=== PATIENT | male | born 1985 | race African-American/Black ===

== ENCOUNTER 2019-12-07 21:51 | Inpatient (IN) | payer SELFPAY ==
--- NOTE | 2019-12-07 22:00 | ER Document Report ---
ED Medical Screen (RME) - General Chief Complaint: Slurred Speech Stated Complaint: SLURRED SPEECH,BLOOD PRESSURE ISSUES Time Seen by Provider: 12/07/19 21:54 Primary Care Provider: MARY VELARDE [Primary Care Provider] - Follow up as needed Mode of Arrival: Ambulatory Information source: Patient Notes: 34-year-old male presents emergency department with high blood pressure. Reports last Monday patient called EMS because he felt shortness of breath and his blood pressure was very high. He followed up on Monday with urgent care. They did put him on clonidine and another blood pressure medication. He reports they followed up on Monday where lab work was done. Tonight when he was at [employer] he started having slurred speech and the right side of his face started drooping. Slight droop noted to the right side lip. Unable to appreciate slurred speech at this time. He reports he was dizzy at the time. Denies history of cardiac disease diabetes. I have greeted and performed a rapid initial assessment of this patient. A comprehensive ED assessment and evaluation of the patient, analysis of test results and completion of the medical decision making process will be conducted by additional ED providers. - Related Data Allergies/Adverse Reactions: No Known Allergies Allergy (Unverified 12/11/11 16:42) Past Medical History - Immunizations Hx Diphtheria, Pertussis, Tetanus Vaccination: Yes Doctor's Discharge - Discharge Referrals: MARY VELARDE [Primary Care Provider] - Follow up as needed
[2019-12-07] MEDS ORDERED: LABETALOL HCL INJ 20 MG/4 ML DISP.SYRIN IV ONE (22:17)
[2019-12-07 22:18] LABS: ABSOLUTE BASOPHILS # (AUTO) 0.2 10^3/uL (0.0-0.2); ABSOLUTE EOSINOPHILS # (AUTO) 0.4 10^3/uL (0.0-0.6); ABSOLUTE LYMPHOCYTES (AUTO) 3.2 10^3/uL (0.5-4.7); ABSOLUTE MONOCYTES (AUTO) 0.6 10^3/uL (0.1-1.4); ABSOLUTE NEUT (AUTO) 9.4 10^3/uL (1.7-8.2); BASOPHILS % (AUTO) 1.2 % (0-2); EOSINOPHILS % (AUTO) 2.9 % (0-6); HEMATOCRIT 44.6 % (37.9-51.0); LYMPHOCYTES % (AUTO) 23.1 % (13-45); MEAN CORPUSCULAR HEMOGLOBIN 31.3 pg (27.0-33.4); MEAN CORPUSCULAR HGB CONC 33.6 g/dL (32.0-36.0); MEAN CORPUSCULAR VOLUME 93 fl (80-97); MONOCYTES % (AUTO) 4.3 % (3-13); PLATELET COUNT 315 10^3/uL (150-450); RED BLOOD COUNT 4.78 10^6/uL (4.35-5.55); RED CELL DISTRIBUTION WIDTH 15.5 % (11.5-14.0); SEGMENTED NEUTROPHILS % (AUTO) 68.5 % (42-78); TOTAL CELLS COUNTED % (AUTO) 100 %; WHITE BLOOD COUNT 13.7 10^3/uL (4.0-10.5)
[2019-12-07 22:29] LABS: INTERNATIONAL RATION (INR) 1.22
[2019-12-07 22:30] LABS: PARTIAL THROMBOPLASTIN TIME 31.5 SEC (23.5-35.8)
[2019-12-07 22:32] LABS: PROTHROMBIN TIME 15.5 SEC (11.4-15.4)
--- NOTE | 2019-12-07 22:43 | RADIOLOGY REPORT (SQ) ---
EXAM DESCRIPTION: XR CHEST 1 VIEW COMPLETED DATE/TME: 12/07/2019 21:57 CLINICAL HISTORY: 34 years, Male, slurred speech, right side facial droop COMPARISON: None. NUMBER OF VIEWS: 1 TECHNIQUE: Portable chest LIMITATIONS: None. FINDINGS: Heart size at the upper limits of normal. Lungs are clear. No pneumothorax IMPRESSION: No acute cardiopulmonary process copyright 2010 [employer]- All Rights Reserved
[2019-12-07 22:44] LABS: ALBUMIN 4.1 g/dL (3.5-5.0); ALKALINE PHOSPHATASE 65 U/L (38-126); ANION GAP 10 (5-19); ASPARTATE AMINO TRANSFERASE 31 U/L (17-59); BILIRUBIN,DIRECT 0.5 mg/dL (0.0-0.4); BLOOD UREA NITROGEN 19 mg/dL (7-20); CALCIUM 9.5 mg/dL (8.4-10.2); CARBON DIOXIDE 26 mmol/L (22-30); CHLORIDE 102 mmol/L (98-107); CREATINE KINASE 65 U/L (55-170); GLUCOSE 120 mg/dL (75-110); POTASSIUM 4.1 mmol/L (3.6-5.0); TOTAL PROTEIN 7.5 g/dL (6.3-8.2)
--- NOTE | 2019-12-07 22:49 | RADIOLOGY REPORT (SQ) ---
EXAM DESCRIPTION: CT HEAD WITHOUT IV CONTRAST COMPLETED DATE/TME: 12/07/2019 21:57 CLINICAL HISTORY: 34 years Male slurred speech, right side facial droop COMPARISON: None. TECHNIQUE: Contiguous axial CT images obtained through the brain without IV contrast. This exam was performed according to our department optimization program which includes automated exposure control, adjustment of the mA and/or kv according to patient size and/or use of iterative reconstruction technique. FINDINGS: The ventricles and sulci are within normal limits for the patient's age. No midline shift or mass effect. No masses identified. No acute intracranial hemorrhage. Low-attenuation along the region of the boykin radiata bilaterally which appears to be secondary to artifact on the coronal images. No fluid or significant mucosal thickening in the visualized paranasal sinuses. No depressed calvarial fractures. IMPRESSION: No acute intracranial abnormality is identified. Nurse practitioner Prudence Koch was called and notified of the findings at 9:40 PM central time.
[2019-12-07 22:56] LABS: CREATINE KINASE MB 1.38 ng/mL (<4.55); TROPONIN I 0.026 ng/mL
[2019-12-08] MEDS ORDERED: LABETALOL HCL INJ 20 MG/4 ML DISP.SYRIN IV ONE (00:06)
--- NOTE | 2019-12-08 00:17 | ER Document Report ---
Entered by DANK MEDEIROS SCRIBE 12/07/191 Acting as scribe for:VIKKI DOMINGUEZ IV, MD ED General - General Chief Complaint: Slurred Speech Stated Complaint: SLURRED SPEECH,BLOOD PRESSURE ISSUES Time Seen by Provider: 12/07/19 21:54 Mode of Arrival: Ambulatory Information source: Patient Notes: This 34 year old male patient with a history of hypertension presents to the ED today with complaints of stroke-like symptoms that began x15-20 minutes prior to arrival. Patient reports slurred speech and right-sided facial drooping while he was at [facility]. Patient also reports dizziness at that time. Patient states that he called EMS with complaints of shortness of breath and a high blood pressure reading x8 days ago. Patient states that the next day, he followed up at a local urgent care and was prescribed clonidine and another blood pressure medication. Patient notes that he followed up with the urgent care x3 days ago and had some lab work done. - Related Data Allergies/Adverse Reactions: No Known Allergies Allergy (Unverified 12/08/19 09:26) Home Medications: Clonidine. Lisinopril-Hctz Past Medical History - General Information source: Patient - Social History Smoking Status: Never Smoker Cigarette use (# per day): No Chew tobacco use (# tins/day): No Smoking Education Provided: No Drug Abuse: None Lives with: Spouse/Significant other Family History: Reviewed & Not Pertinent Patient has suicidal ideation: No Patient has homicidal ideation: No - Immunizations Hx Diphtheria, Pertussis, Tetanus Vaccination: Yes Review of Systems - Review of Systems Constitutional: No symptoms reported EENT: No symptoms reported Cardiovascular: See HPI, Dizziness Gastrointestinal: No symptoms reported Genitourinary: No symptoms reported Male Genitourinary: No symptoms reported Musculoskeletal: No symptoms reported Skin: No symptoms reported Hematologic/Lymphatic: No symptoms reported Neurological/Psychological: See HPI, Speech impairment - Slurred speech, Other - Right-sided facial droop -: Yes All other systems reviewed and negative Physical Exam - Vital signs Vitals: Resp BP Pulse Ox 16 191/158 H 96 12/07/19 22:11 12/07/19 22:11 12/07/19 22:11 Interpretation: Hypertensive - General General appearance: Alert - HEENT Head: Normocephalic, Atraumatic Eyes: Normal Pupils: PERRL - Respiratory Respiratory status: No respiratory distress Chest status: Nontender Breath sounds: Normal Chest palpation: Normal - Cardiovascular Rhythm: Tachycardia Heart sounds: Normal auscultation Murmur: No - Abdominal Inspection: Normal Distension: No distension Bowel sounds: Normal Tenderness: Nontender Organomegaly: No organomegaly - Back Back: Normal, Nontender - Extremities General upper extremity: Normal inspection General lower extremity: Normal inspection - Neurological Neuro grossly intact: Yes - Psychological Associated symptoms: Normal affect, Normal mood - Skin Skin Temperature: Warm Skin Moisture: Dry Skin Color: Normal Course - Vital Signs Vital signs: Temp Pulse Resp BP Pulse Ox 97.7 F 90 24 H 138/105 H 100 12/09/19 00:02 12/09/19 00:02 12/09/19 00:02 12/09/19 00:00 12/09/19 00:02 - Laboratory Result Diagrams: 12/07/19 22:08 12/07/19 22:08 Laboratory results interpreted by me: 12/07/19 12/07/19 12/07/19 22:08 22:08 22:08 WBC 13.7 H RDW 15.5 H Absolute Neuts (auto) 9.4 H PT 15.5 H Creatinine 1.60 H Est GFR (MDRD) Non-Af 50 L Glucose 120 H POC Glucose Total Bilirubin 2.0 H Direct Bilirubin 0.5 H 12/07/19 22:17 WBC RDW Absolute Neuts (auto) PT Creatinine Est GFR (MDRD) Non-Af Glucose POC Glucose 129 H Total Bilirubin Direct Bilirubin - EKG Interpretation by Me Additional EKG results interpreted by me: 12/08/19 01:01 EKG performed on 12/07/2019 at 2222 hrs. was interpreted by this MD. Findings: Sinus tachycardia, rate 112, normal axis, P waves proceed QRS complexes, ST segments are nonspecific. - Consults dr. sun Time consulted: 00:50 Reason for consultation: 12/08/19 00:57 tia, hypertensive urgency Consulted provider: will come to ER Critical Care Note - Critical Care Note Total time excluding time spent on procedures (mins): 30 Discharge - Discharge Clinical Impression: TIA (transient ischemic attack), Hypertensive urgency Condition: Good Disposition: ADMITTED INPATIENT Admitting Provider: Sky (Hospitalist) Unit Admitted: [facility] I personally performed the services described in the documentation, reviewed and edited the documentation which was dictated to the scribe in my presence, and it accurately records my words and actions.
[2019-12-08] MEDS ORDERED: ENALAPRILAT DIHYDRATE INJ/PF 2.5 MG/2 ML SDV IV ONE (00:54)
[2019-12-08] MEDS ORDERED: ACETAMINOPHEN 325 MG TABLET PO PRN (01:06)
[2019-12-08] MEDS ORDERED: HYDRALAZINE HCL INJ/PF 20 MG/1 ML SDV IV PRN (01:17)
[2019-12-08] MEDS ORDERED: METOPROLOL TARTRATE PF/INJ 5 MG/5 ML SDV IV PRN (01:19)
--- NOTE | 2019-12-08 01:42 | PDOC H&P ---
History of Present Illness Patient complains of: Right facial numbness with slurred speech History of Present Illness: PRINCE MEREDITH is a 34 year old male with a body mass index of 57. He just established with a primary care provider at [facility]. At the initial visit on Monday of this week his blood pressure was 220/160. He was placed on lisinopril with hydrochlorothiazide 20/12.5. He felt fine today and was in his usual state of health when he developed right-sided facial numbness and slurred speech while driving. They immediately pulled over. He had chicken for dinner and it happened subsequently after this. The patient and his feel that it may have been the sodium in the meal. By the time he reached the emergency department his symptoms were completely resolved. His blood pressure at the time of this encounter is 175/108. His pulse was 92. He felt comfortable. He had no complaints of headache, chest pain, palpitations, nausea or vomiting and was not diaphoretic. Other than the high blood pressure he has no other past medical history. His reports that he does snore and may very well have obstructive sleep apnea. He does have a history of tobacco use but stopped approximately 1 year ago. 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 His creatinine was 1.6 on admission. Blood work was drawn at his primary care appointment on Monday however he is not aware of the results. He denies any knowledge of previous kidney problems and there is no family history of kidney disease. The patient was referred to the hospitalist service for admission. Past Medical History Cardiac Medical History: Reports: Hypertension Pulmonary Medical History: Denies: Asthma, Chronic Obstructive Pulmonary Disease (COPD), Respiratory Failure Neurological Medical History: Denies: Hemorrhagic CVA, Ischemic CVA Endocrine Medical History: Reports: Obesity Renal/ Medical History: Denies: Chronic Kidney Disease Malignancy Medical History: Reports: None GI Medical History: Reports: None Musculoskeltal Medical History: Reports: None Skin Medical History: Denies: Eczema, Psoriasis Psychiatric Medical History: Reports: Tobacco Dependency Denies: Alcohol Dependency, Depression, Substance Abuse Traumatic Medical History: Reports: None Hematology: Reports: None Infectious Medical History: Reports: None Past Surgical History Past Surgical History: Reports: None Social History Information Source: Patient - And his spouse who is at the bedside Lives with: Family Smoking Status: Former Smoker Electronic Cigarette use?: No Last Time Smoked: Approximately 1 year ago Frequency of Alcohol Use: None Hx Recreational Drug Use: No Hx Prescription Drug Abuse: No Past Social History Note: 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[place] [employer] - Advance Directive Resuscitation Status: Full Code Surrogate healthcare decision maker:: His would be the dedicated decision maker Family History Family History: Hypertension Parental Family History Reviewed: Yes Children Family History Reviewed: Yes Sibling(s) Family History Reviewed.: Yes Medication/Allergy Home Medications: No Home Medications 12/11/11 Allergies/Adverse Reactions: No Known Allergies Allergy (Unverified 12/11/11 16:42) Review of Systems All systems: reviewed and no additional remarkable complaints except as stated Cardiovascular: PRESENT: edema - Bilateral lower extremities Respiratory: PRESENT: other - Patient snores Physical Exam Vital Signs: Temp Pulse Resp BP Pulse Ox 98.2 F 86 13 175/108 H 98 12/07/19 22:21 12/08/19 00:00 12/08/19 00:30 12/08/19 00:31 12/08/19 00:31 Intake & Output 12/06/19 12/07/19 12/08/19 06:59 06:59 06:59 Weight 185.4 kg General appearance: PRESENT: no acute distress, cooperative, morbidly obese, well-developed, well-nourished Head exam: PRESENT: atraumatic, normocephalic Eye exam: PRESENT: conjunctiva pale, EOMI, PERRLA. ABSENT: scleral icterus Ear exam: PRESENT: normal external ear exam. ABSENT: bleeding, drainage Mouth exam: PRESENT: moist, tongue midline Teeth exam: ABSENT: poor dentation Neck exam: PRESENT: other - Very large neck. ABSENT: carotid bruit, JVD, lymphadenopathy Respiratory exam: PRESENT: clear to auscultation tank, symmetrical, unlabored. ABSENT: accessory muscle use, prolonged expiratory phas, rales, rhonchi, tachypnea, wheezes Cardiovascular exam: PRESENT: RRR, +S1, +S2. ABSENT: diastolic murmur, systolic murmur Pulses: PRESENT: normal radial pulses GI/Abdominal exam: PRESENT: normal bowel sounds, soft, other - Protuberant abdomen. ABSENT: distended, guarding, tenderness Rectal exam: PRESENT: deferred Gentrourinary exam: ABSENT: indwelling catheter Extremities exam: PRESENT: full ROM, +1 edema Musculoskeletal exam: PRESENT: ambulatory, normal inspection. ABSENT: deformity Neurological exam: PRESENT: alert, awake, oriented to person, oriented to place, oriented to time, oriented to situation, CN II-XII grossly intact, normal gait. ABSENT: motor sensory deficit Psychiatric exam: PRESENT: appropriate affect, normal mood. ABSENT: agitated, anxious Focused psych exam: ABSENT: delusional, restlessness Skin exam: PRESENT: dry, normal color, warm. ABSENT: cyanosis, rash Results Laboratory Results: 12/07/19 22:08 12/07/19 22:08 12/07/19 12/07/19 22:08 22:08 WBC 13.7 H RBC 4.78 Hgb 15.0 Hct 44.6 MCV 93 MCH 31.3 MCHC 33.6 RDW 15.5 H Plt Count 315 Seg Neutrophils % 68.5 Sodium 138.2 Potassium 4.1 Chloride 102 Carbon Dioxide 26 Anion Gap 10 BUN 19 Creatinine 1.60 H Est GFR ( Amer) > 60 Glucose 120 H Calcium 9.5 Total Bilirubin 2.0 H AST 31 Alkaline Phosphatase 65 Total Protein 7.5 Albumin 4.1 12/07/19 12/07/19 22:08 22:08 Creatine Kinase 65 CK-MB (CK-2) 1.38 Troponin I 0.026 Impressions: Chest X-Ray 12/07/19 21:57 IMPRESSION: No acute cardiopulmonary process copyright 2011 [employer]- All Rights Reserved Head CT 12/07/19 21:57 IMPRESSION: No acute intracranial abnormality is identified. Nurse practitioner Prudence Koch was called and notified of the findings at 9:40 PM central time. Assessment and Plan - Diagnosis (1) TIA (transient ischemic attack) Is this a current diagnosis for this admission?: Yes Plan: Patient symptoms resolved prior to presentation in the emergency department. He has never had a previous episode. I believe it is related to his hypertensive urgency/uncontrolled hypertension. Please see medications below. (2) Hypertensive urgency Is this a current diagnosis for this admission?: Yes Plan: Multiple medications will be given. In addition to the medications provided by the emergency department I have ordered 40 mg of furosemide IV as well as 5 mg of enalapril. I have started scheduled hydralazine as well as intravenous hydralazine as needed. He has metoprolol ordered as needed also. If this regimen is not effective I may add nifedipine orally. Because of his morbid obesity I am going to use a thigh cuff on his arm to ensure that we have an appropriately sized cuff for accurate blood pressure measurement. (3) Acute kidney injury Is this a current diagnosis for this admission?: Yes Plan: Patient has no history of kidney disease. There is a family history of hy pertension but he denies family history of kidney issues. His serum creatinine was elevated on admission at 1.60. He is on lisinopril. We will monitor his pressure on the AALIYAH inhibitor/angiotensin receptor madeline and continue to monitor. (4) Localized edema Is this a current diagnosis for this admission?: Yes Plan: The patient has lower extremity edema. He states that it is worse today than it was on Monday. He may need furosemide instead of hydrochlorothiazide. (5) Morbid obesity with BMI of 50.0-59.9, adult Is this a current diagnosis for this admission?: Yes Plan: He did start a diet after visiting with the primary care. Obviously is too soon to tell. He will be placed on a cardiac diet at this point. His glucose was 120 and if it continues to be elevated will check a hemoglobin A1c as well. (6) Hyperbilirubinemia Is this a current diagnosis for this admission?: Yes Plan: We have no old blood work to compare to. It is unknown if this is new or not. We will continue to monitor. (7) Obstructive sleep apnea Is this a current diagnosis for this admission?: Yes Plan: The patient's reports that he snores. At the primary care visit on Monday they discussed obstructive sleep apnea. At the follow-up they are going to review the need for a sleep study. I explained to the patient that t his absolutely should be obtained. He has significant risk with his morbid obesity. We will keep him on a pulse oximeter and if he desaturates we will utilize oxygen tonight however sleep study will be obtained as an outpatient. - Plan Summary Summary: Aggressive management of his blood pressure. We will try and implement a regimen that is manageable as an outpatient. As an inpatient we have as needed medications ordered in addition to increased doses of baseline meds. - Time Time Spent with patient: 35 or more minutes Medications reviewed and adjusted accordingly: Yes Anticipated discharge: Home Within: within 48 hours
[2019-12-08] MEDS ORDERED: FUROSEMIDE INJ/PF 40 MG/4 ML SDV IV ONE (02:00)
[2019-12-08] MEDS ORDERED: LOSARTAN POTASSIUM 50 MG TABLET PO ONE (02:00)
[2019-12-08] MEDS ORDERED: INFLUENZA QUAD (6MOS+) 2019-20 VAC 0.5 ML SYR IM ONE (04:11)
[2019-12-08] MEDS ORDERED: LOSARTAN POTASSIUM 50 MG TABLET PO SCH (10:00)
[2019-12-08] MEDS: ASPIRIN 81 MG TABLET, ENT COATED PO SCH (10:54)
[2019-12-08] MEDS: HYDRALAZINE HCL 25 MG TABLET PO SCH ×2 (10:54→21:18)
[2019-12-08] MEDS: HYDROCHLOROTHIAZIDE 25 MG TABLET PO SCH (10:54)
[2019-12-08] MEDS: ENOXAPARIN SODIUM INJ 40 MG/0.4 ML DISP.SYRIN SUBCUT SCH (10:55)
--- NOTE | 2019-12-08 14:30 | RADIOLOGY REPORT (SQ) ---
EXAM DESCRIPTION: MRI HEAD WITHOUT COMPLETED DATE/TIME: 12/08/2019 1:11 pm REASON FOR STUDY: TIA COMPARISON: None. TECHNIQUE: Multiplanar imaging includes non-contrasted T1, T2, FLAIR, and diffusion with ADC map seq uences. Images stored on PACS. LIMITATIONS: None. FINDINGS: ANATOMY: No anomalies. Normal vascular flow voids. Pituitary fossa normal. CSF SPACES: Normal in size and contour. No hemorrhage. CEREBRUM: Sulci and gyri normal in size and contour. Normal white matter signal on FLAIR imaging. No evidence of hemorrhage, mass, or extraaxial fluid collection. POSTERIOR FOSSA: No signal alteration. No hemorrhage. No edema, masses or mass effect. Internal paul tory canals, cerebello-pontine angles, mastoids normal. DIFFUSION IMAGING: There are subtle small watershed infarcts in the MCA distribution bilaterally. ORBITS: No masses. Globes normal. PARANASAL SINUSES: No fluid levels. Mucosa normal. OTHER: No other significant finding. IMPRESSION: Acute, nonhemorrhagic small watershed infarcts. EVIDENCE OF ACUTE STROKE: YES. Bilateral MCA. COMMENT: Suspicious for embolic disease. TECHNICAL DOCUMENTATION: JOB ID: [id number] [employer]- All Rights Reserved Reading location - IP/workstation name: [email or web address]
--- NOTE | 2019-12-08 15:29 | Progress Note ---
Provider Note Provider Note: MRI shows acute nonhemorrhagic small watershed infarct with bilateral MCA involvement. Patient is currently symptomatic. His blood pressure is down to about 130 systolic although will have provided to be somewhat higher to allow permissive hypertension. A two-dimensional echocardiogram will be ordered as well as a lipid panel. Patient is currently on aspirin, atorvastatin and antihypertensives. I have decreased his losartan will follow-up with carotid Doppler studies. Temp Pulse Resp BP Pulse Ox 97.7 F 95 18 128/98 H 100 12/08/19 12:00 12/08/19 14:00 12/08/19 12:00 12/08/19 12:00 12/08/19 12:00 Intake & Output 12/07/19 12/08/19 12/09/19 06:59 06:59 06:59 Intake Total 0 Output Total 1994 Balance -1994 Weight 151.5 kg
--- NOTE | 2019-12-08 20:32 | EKG REPORT ---
SEVERITY:- ABNORMAL ECG - SINUS RHYTHM LEFT AXIS DEVIATION BORDERLINE R WAVE PROGRESSION, ANTERIOR LEADS NONSPECIFIC T ABNORMALITIES, LATERAL LEADS : Confirmed by: Neyda Samuels MD 08-Dec-2019 20:31:10
--- NOTE | 2019-12-08 20:32 | EKG REPORT ---
SEVERITY:- ABNORMAL ECG - SINUS TACHYCARDIA VENTRICULAR TRIGEMINY PROBABLE LEFT ATRIAL ABNORMALITY ABNORMAL T, CONSIDER ISCHEMIA, DIFFUSE LEADS : Confirmed by: Neyda Samuels MD 08-Dec-2019 20:31:16
[2019-12-08] MEDS: ATORVASTATIN CALCIUM 40 MG TABLET PO SCH (21:18)
[2019-12-09 05:40] LABS: ABSOLUTE BASOPHILS # (AUTO) 0.1 10^3/uL (0.0-0.2); ABSOLUTE EOSINOPHILS # (AUTO) 0.6 10^3/uL (0.0-0.6); ABSOLUTE LYMPHOCYTES (AUTO) 2.6 10^3/uL (0.5-4.7); ABSOLUTE MONOCYTES (AUTO) 0.7 10^3/uL (0.1-1.4); ABSOLUTE NEUT (AUTO) 6.9 10^3/uL (1.7-8.2); BASOPHILS % (AUTO) 1.3 % (0-2); EOSINOPHILS % (AUTO) 5.1 % (0-6); HEMATOCRIT 41.7 % (37.9-51.0); HEMOGLOBIN 14.1 g/dL (13.5-17.0); LYMPHOCYTES % (AUTO) 23.7 % (13-45); MEAN CORPUSCULAR HGB CONC 33.8 g/dL (32.0-36.0); MEAN CORPUSCULAR VOLUME 92 fl (80-97); MONOCYTES % (AUTO) 6.5 % (3-13); PLATELET COUNT 285 10^3/uL (150-450); RED BLOOD COUNT 4.54 10^6/uL (4.35-5.55); RED CELL DISTRIBUTION WIDTH 15.7 % (11.5-14.0); SEGMENTED NEUTROPHILS % (AUTO) 63.4 % (42-78); TOTAL CELLS COUNTED % (AUTO) 100 %; WHITE BLOOD COUNT 10.8 10^3/uL (4.0-10.5)
[2019-12-09 05:58] LABS: ANION GAP 9 (5-19); BLOOD UREA NITROGEN 17 mg/dL (7-20); CALCIUM 9.1 mg/dL (8.4-10.2); CARBON DIOXIDE 26 mmol/L (22-30); CHLORIDE 103 mmol/L (98-107); CHOLESTEROL 145.38 mg/dL (0-200); GLUCOSE 91 mg/dL (75-110); POTASSIUM 4.1 mmol/L (3.6-5.0); TRIGLYCERIDES 74 mg/dL (<150)
[2019-12-09 06:09] LABS: DIRECT LDL 113 mg/dL (<100)
[2019-12-09] MEDS: ENOXAPARIN SODIUM INJ 40 MG/0.4 ML DISP.SYRIN SUBCUT SCH (09:18)
[2019-12-09] MEDS: HYDROCHLOROTHIAZIDE 25 MG TABLET PO SCH (09:18)
[2019-12-09] MEDS: ASPIRIN 81 MG TABLET, ENT COATED PO SCH (09:18)
[2019-12-09] MEDS: HYDRALAZINE HCL 25 MG TABLET PO SCH ×2 (09:18→21:40)
[2019-12-09] MEDS: LOSARTAN POTASSIUM 50 MG TABLET PO SCH (09:18)
--- NOTE | 2019-12-09 16:40 | RADIOLOGY REPORT (SQ) ---
EXAM DESCRIPTION: CAROTID DOPPLER COMPLETED DATE/TIME: 12/09/2019 2:27 pm REASON FOR STUDY: TIA COMPARISON: None. TECHNIQUE: Grayscale ultrasound, Doppler velocity and spectra, and color Doppler images acquired of the extra-cranial carotid and vertebral arteries. Images stored on PACS. LIMITATIONS: None. FINDINGS: RIGHT CAROTID CCA Velocities: Within normal limits. ICA Velocities Peak systolic 86 cm/s. End diastolic 28 cm/s. Proximal ICA/CCA peak systolic ratio 0.9. Spectra normal. No significant plaque. LEFT CAROTID CCA Velocities: Within normal limits. ICA Velocities Peak systolic 64 cm/s. End diastolic 26 cm/s. Proximal ICA/CCA peak systolic ratio 0.7. Spectra normal. No significant plaque. VERTEBRAL ARTERIES: Antegrade flow. Normal waveforms. SUBCLAVIAN ARTERIES: No finding. OTHER: No other significant finding. IMPRESSION: NO HEMODYNAMICALLY SIGNIFICANT STENOSIS. COMMENT: Quality ID #195: Velocity criteria are extrapolated from the diameter data as defined by t chantell Society of Radiologists in Ultrasound Consensus Conference. Radiology 2003: 229; 340-346. TECHNICAL DOCUMENTATION: JOB ID: [id number] 2010 [employer]- All Rights Reserved Reading location - IP/workstation name: [email or web address]
--- NOTE | 2019-12-09 16:50 | PDOC PROGRESS REPORT ---
Subjective Progress Note for:: 12/09/19 Subjective:: Follow-up of acute CVA as well as hypertensive emergency. Patient denies any symptoms. He has been ambulatory with no issues. He denies any weakness. At this time carotid Doppler studies as well as echocardiogram are currently pending. Reason For Visit: HYPERTENSIVE EMERGENCY, MORBID OBESITY,OBSTRUCTIVE Physical Exam Vital Signs: Temp Pulse Resp BP Pulse Ox 97.8 F 113 H 18 122/81 100 12/09/19 12:52 12/09/19 14:00 12/09/19 12:52 12/09/19 12:52 12/09/19 12:52 Intake & Output 12/08/19 12/09/19 12/10/19 06:59 06:59 06:59 Intake Total 3186 Output Total 1994 1329 Balance -1994 1856 Weight 151.5 kg 181.9 kg General appearance: PRESENT: no acute distress, well-developed, well-nourished Head exam: PRESENT: atraumatic, normocephalic Eye exam: PRESENT: conjunctiva pink, PERRLA. ABSENT: scleral icterus Mouth exam: PRESENT: tongue midline Neck exam: ABSENT: carotid bruit, JVD, lymphadenopathy, thyromegaly Respiratory exam: PRESENT: clear to auscultation tank. ABSENT: rales, rhonchi, wheezes Cardiovascular exam: PRESENT: RRR. ABSENT: diastolic murmur, rubs, systolic murmur Vascular exam: PRESENT: normal capillary refill GI/Abdominal exam: PRESENT: normal bowel sounds, soft. ABSENT: distended, guarding, mass, organolmegaly, rebound, tenderness Rectal exam: PRESENT: deferred Extremities exam: PRESENT: full ROM. ABSENT: calf tenderness, clubbing, pedal edema Neurological exam: PRESENT: alert, awake, oriented to person, oriented to place, oriented to time, oriented to situation, CN II-XII grossly intact. ABSENT: motor sensory deficit Psychiatric exam: PRESENT: appropriate affect, normal mood. ABSENT: homicidal ideation, suicidal ideation Skin exam: PRESENT: dry, intact, warm. ABSENT: cyanosis, rash Results Laboratory Results: 12/09/19 05:28 12/09/19 05:28 12/09/19 12/09/19 05:28 05:28 WBC 10.8 H RBC 4.54 Hgb 14.1 Hct 41.7 MCV 92 MCH 31.0 MCHC 33.8 RDW 15.7 H Plt Count 285 Seg Neutrophils % 63.4 Sodium 138.3 Potassium 4.1 Chloride 103 Carbon Dioxide 26 Anion Gap 9 BUN 17 Creatinine 1.50 H Est GFR ( Amer) > 60 Glucose 91 Calcium 9.1 Triglycerides 74 Cholesterol 145.38 LDL Cholesterol Direct 113 H VLDL Cholesterol 15.0 HDL Cholesterol 29 L 12/07/19 12/07/19 22:08 22:08 Creatine Kinase 65 CK-MB (CK-2) 1.38 Troponin I 0.026 Impressions: Chest X-Ray 12/07/19 21:57 IMPRESSION: No acute cardiopulmonary process copyright 2011 [facility]- All Rights Reserved Head CT 12/07/19 21:57 IMPRESSION: No acute intracranial abnormality is identified. Nurse practitioner Prudence Koch was called and notified of the findings at 9:40 PM central time. Head MRI 12/08/19 00:00 IMPRESSION: Acute, nonhemorrhagic small watershed infarcts. EVIDENCE OF ACUTE STROKE: YES. Bilateral MCA. Carotid Doppler Study 12/09/19 01:10 IMPRESSION: NO HEMODYNAMICALLY SIGNIFICANT STENOSIS. Assessment and Plan - Diagnosis (1) Acute cerebrovascular accident (CVA) Is this a current diagnosis for this admission?: Yes Plan: MRI shows acute nonhemorrhagic watershed infarcts. Bilateral MCA. This is likely related to his hypertensive emergency. Patient currently has no deficits (2) Hypertensive emergency Is this a current diagnosis for this admission?: Yes Plan: Initially permissive hypertension but this is now been much better controlled. Patient counseled on the need to be compliant with his medications (3) Morbid obesity with BMI of 50.0-59.9, adult Is this a current diagnosis for this admission?: Yes Plan: Advised to continue with weight loss plan l. - Plan Summary Summary: Patient can be discharged home in a.m. once all his test results are available
[2019-12-09] MEDS: ATORVASTATIN CALCIUM 40 MG TABLET PO SCH (21:41)
[2019-12-10] MEDS: ASPIRIN 81 MG TABLET, ENT COATED PO SCH (10:28)
[2019-12-10] MEDS: HYDRALAZINE HCL 25 MG TABLET PO SCH (10:28)
[2019-12-10] MEDS: HYDROCHLOROTHIAZIDE 25 MG TABLET PO SCH (10:28)
[2019-12-10] MEDS: LOSARTAN POTASSIUM 50 MG TABLET PO SCH (10:28)
[2019-12-10] MEDS: ENOXAPARIN SODIUM INJ 40 MG/0.4 ML DISP.SYRIN SUBCUT SCH (10:28)
[2019-12-10 12:05] LABS: TROPONIN I 0.018 ng/mL
[2019-12-10] MEDS: CARVEDILOL 12.5 MG TABLET PO SCH ×2 (14:18→21:41)
--- NOTE | 2019-12-10 15:34 | PDOC PROGRESS REPORT ---
Subjective Progress Note for:: 12/10/19 Subjective:: PRINCE MEREDITH is a 34 year old male with a body mass index of 57. He just established with a primary care provider at [facility]. At the initial visit on Monday of this week his blood pressure was 220/160. He was placed on lisinopril with hydrochlorothiazide 20/12.5. He felt fine today and was in his usual state of health when he developed right-sided facial numbness and slurred speech while driving. They immediately pulled over. He had chicken for dinner and it happened subsequently after this. The patient and his feel that it may have been the sodium in the meal. By the time he reached the emergency department his symptoms were completely resolved. His blood pressure at the time of this encounter is 175/108. His pulse was 92. He felt comfortable. He had no complaints of headache, chest pain, palpitations, nausea or vomiting and was not diaphoretic. Other than the high blood pressure he has no other past medical history. His reports that he does snore and may very well have obstructive sleep apnea. He does have a history of tobacco use but stopped approximately 1 year ago. He works as a retail general manager and denies exposure to any toxins. His creatinine was 1.6 on admission. Blood work was drawn at his primary care appointment on Monday however he is not aware of the results. He denies any knowledge of previous kidney problems and there is no family history of kidney disease. The patient was referred to the hospitalist service for admission. 12/10/2019. No acute events overnight. Comfortable resting in bed no apparent distress. Denies any focal neurologic symptoms. Anxious to be discharged home. Denies any fever, chills, nausea, vomiting, diarrhea, constipation or any urinary symptoms. P.o. tolerant. Ambulatory. Having normal bowel and bladder movement. Pending 2D echo. Reason For Visit: HYPERTENSIVE EMERGENCY, MORBID OBESITY,OBSTRUCTIVE Physical Exam Vital Signs: Temp Pulse Resp BP Pulse Ox 97.8 F 111 H 16 162/90 H 100 12/10/19 11:59 12/10/19 14:00 12/10/19 12:00 12/10/19 12:00 12/10/19 12:00 Intake & Output 12/09/19 12/10/19 12/11/19 06:59 06:59 06:59 Intake Total 3187 1515 300 Output Total 1330 600 Balance 1857 915 300 Weight 181.9 kg 180.4 kg General appearance: PRESENT: morbidly obese Head exam: PRESENT: atraumatic, normocephalic Respiratory exam: PRESENT: clear to auscultation tank. ABSENT: rales, rhonchi, wheezes Cardiovascular exam: PRESENT: RRR. ABSENT: diastolic murmur, rubs, systolic murmur GI/Abdominal exam: PRESENT: normal bowel sounds, soft. ABSENT: distended, guarding, mass, organolmegaly, rebound, tenderness Extremities exam: PRESENT: +1 edema Neurological exam: PRESENT: alert, awake, oriented to person, oriented to place, oriented to time, oriented to situation, CN II-XII grossly intact. ABSENT: motor sensory deficit Results Laboratory Results: 12/09/19 05:28 12/09/19 05:28 12/07/19 12/07/19 12/10/19 22:08 22:08 11:08 Creatine Kinase 65 CK-MB (CK-2) 1.38 Troponin I 0.026 0.018 NT-Pro-B Natriuret Pep 1120 H Impressions: Chest X-Ray 12/07/19 21:57 IMPRESSION: No acute cardiopulmonary process copyright 2011 [employer]- All Rights Reserved Head CT 12/07/19 21:57 IMPRESSION: No acute intracranial abnormality is identified. Nurse practitioner Prudence Koch was called and notified of the findings at 9:40 PM central time. Head MRI 12/08/19 00:00 IMPRESSION: Acute, nonhemorrhagic small watershed infarcts. EVIDENCE OF ACUTE STROKE: YES. Bilateral MCA. Carotid Doppler Study 12/09/19 01:10 IMPRESSION: NO HEMODYNAMICALLY SIGNIFICANT STENOSIS. Assessment and Plan - Diagnosis (1) Acute cerebrovascular accident (CVA) Is this a current diagnosis for this admission?: Yes Plan: Stable. Denies any focal neurologic symptoms. Ambulatory. MRI shows acute nonhemorrhagic watershed infarcts. Bilateral MCA. Likely due to hypertensive emergency but cardioembolic phenomena cannot be ruled out. 2D echo pending. Carotid Doppler negative for any hemodynamically significant stenosis. No arrhythmias on bus monitor. Patient is stating that he did have a murmur when currently the child but was not follow-up. Given bilateral multiple infarct in the watershed areas and history of heart murmur raises suspicion of possible cardioembolic stroke. Patient may benefit from agitated saline TTE or INDIRA. I have consulted Dr. Arian Billy military source operations specialist who has graciously accepted to do a INDIRA while patient is in the hospital. Continue high intensity statins, antiplatelets, optimize BP. (2) Acute systolic heart failure Is this a current diagnosis for this admission?: Yes Plan: Denies any history of CAD. Troponins 0.026, and 0.18 respectively. proBNP 1120 likely falsely decreased due to underlying obesity. Mildly elevated troponins likely due to hypertensive emergency. Denies any anginal symptoms. Continue cardiac diet, strict in and out, beta-blockers. Avoid AALIYAH/ARB and diuretics given acute kidney injury. Resume once renal function stabilizes or resolves. (3) Acute kidney injury Is this a current diagnosis for this admission?: Yes Plan: Improving. No baseline available. This most likely to hypertensive emergency. Hold AALIYAH/ARB and diuretics. Optimize BP. Monitor electrolytes and volume status. Replace as needed. Avoid nephrotoxic meds. BMP tomorrow. (4) Hypertensive emergency Is this a current diagnosis for this admission?: Yes Plan: Improving. Not optimized. Family history of hypertension. Takes hydrochlorothiazide and lisinopril at home. Hold hydrochlorothiazide and lisinopril given recent BRITT. We will start on carvedilol and amlodipine. Can resume AALIYAH/ARB once kidney function stabilized or improved. (5) Morbid obesity with BMI of 50.0-59.9, adult Is this a current diagnosis for this admission?: Yes Plan: BMI 55.5. We will obtain TSH. Diet and lifestyle modification recommended. Outpatient nocturnal polysomnography may benefit him long-term in controlling his BP and obesity. (6) Obstructive sleep apnea Is this a current diagnosis for this admission?: Yes Plan: Outpatient nocturnal polysomnography. (7) Hyperlipidemia Is this a current diagnosis for this admission?: Yes Plan: High risk of cardiovascular complication given history of hypertension, hyperlipidemia and obesity. We will start on high intensity statin. Outpatient PCP follow-up for LFT monitoring.
[2019-12-10] MEDS: ATORVASTATIN CALCIUM 40 MG TABLET PO SCH (21:41)
[2019-12-10] MEDS ORDERED: AMLODIPINE BESYLATE 10 MG TABLET PO SCH (22:00)
[2019-12-11] MEDS ORDERED: DIPHENHYDRAMINE HCL 50 MG/ML VIAL ONE (07:51)
[2019-12-11] MEDS ORDERED: NALOXONE HCL INJ/PF 0.4 MG/1 ML SDV ONE (07:51)
[2019-12-11] MEDS ORDERED: BENZOCAINE 20% AEROSOL SPRAY 60 GM ONE (07:51)
[2019-12-11] MEDS ORDERED: FLUMAZENIL INJ 0.5 MG/5 ML VIAL ONE (07:51)
[2019-12-11] MEDS ORDERED: LIDOCAINE 2% JELLY 30 ML TUBE ONE (07:52)
[2019-12-11] MEDS ORDERED: CARVEDILOL 12.5 MG TABLET PO SCH ×2 (08:00→10:00)
[2019-12-11] MEDS: MIDAZOLAM 2 MG/2 ML INJ ONE ×2 (08:25→08:29)
[2019-12-11] MEDS: FENTANYL CITRATE INJ/PF 100 MCG/2 ML AMPUL ONE ×2 (08:27→08:31)
[2019-12-11 10:31] LABS: ANION GAP 8 (5-19); BLOOD UREA NITROGEN 17 mg/dL (7-20); CALCIUM 9.3 mg/dL (8.4-10.2); CARBON DIOXIDE 25 mmol/L (22-30); CHLORIDE 104 mmol/L (98-107); GLUCOSE 117 mg/dL (75-110); POTASSIUM 4.7 mmol/L (3.6-5.0)
[2019-12-11] MEDS: ASPIRIN 81 MG TABLET, ENT COATED PO SCH (10:36)
[2019-12-11] MEDS: ENOXAPARIN SODIUM INJ 40 MG/0.4 ML DISP.SYRIN SUBCUT SCH (10:36)
--- NOTE | 2019-12-11 12:12 | XCELERA REPORT ---
[address] [address] Transthoracic Echocardiogram Report Name: PRINCE MEREDITH Age: 34 yrs Gender: Male : 1985 Patient Status: Inpatient Patient Location: [address] [place], [place] [address] Study Date: 12/09/2019 11:11 AM Height: 71 in Weight: 334 lb BSA: 2.6 m2 Procedure: A two-dimensional transthoracic echocardiogram with color flow and Doppler was performed. The study was technically adequate with some images being suboptimal in quality. Reason For Study: Acute CVA Ordering Physician: ACRLOS DAVIS Performed By: Avelina Gill Interpretation Summary LV EF is 35% Left ventricular systolic function is moderate to severely reduced. The left ventricle is mildly dilated. There is mild to moderate concentric left ventricular hypertrophy. Doppler measurements suggest pseudonormalized left ventricular relaxation, which is associated with grade II/IV or mild to moderate diastolic dysfunction There is moderate to severe global hypokinesis of the left ventricle. The right ventricular systolic function is normal. The left atrium is moderately dilated. The right atrium is mild to moderately dilated. There is a trace amount of mitral regurgitation There is no mitral valve stenosis. There is no aortic valve stenosis No aortic regurgitation is present. There is a mild amount of tricuspid regurgitation There is mild pulmonary hypertension by echo Right ventricular systolic pressure is estimated to be elevated at 30-40mmHg. The aortic root is not well visualized but is probably normal size. The inferior vena cava appeared normal and decreased > 50% with respiration (RAP 5-10 mmHg) There is no pericardial effusion. No definite cardiac source of CVA/TIA noted on this particular trans-thoracic study. Consider INDIRA if clinically indicated. MMode/2D Measurements & Calculations RVDd: 4.6 cm LVIDd: 6.2 cm FS: 15.2 % Ao root diam: 2.7 cm IVSd: 1.4 cm LVIDs: 5.3 cm EDV(Teich): 195.9 ml Ao root area: 5.8 cm2 LVPWd: 1.3 cm ESV(Teich): 134.3 ml EF(Teich): 31.5 % Doppler Measurements & Calculations MV E max luis: MV dec slope: Ao V2 max: LV V1 max P.3 cm/sec 1276 cm/sec2 127.5 cm/sec 5.8 mmHg MV A max luis: MV dec time: Ao max P.5 mmHgLV V1 max: 46.0 cm/sec 0.10 sec 120.1 cm/sec MV E/A: 2.8 PA V2 max: PI end-d luis: TR max luis: 66.2 cm/sec 154.9 cm/sec 261.1 cm/sec PA max P.8 mmHg TR max P.4 mmHg Left Ventricle The left ventricle is mildly dilated. There is mild to moderate concentric left ventricular hypertrophy. Left ventricular systolic function is moderate to severely reduced. LV EF is 35%. Doppler measurements suggest pseudonormalized left ventricular relaxation, which is associated with grade II/IV or mild to moderate diastolic dysfunction. There is moderate to severe global hypokinesis of the left ventricle. Right Ventricle The right ventricle is grossly normal size. There is normal right ventricular wall thickness. The right ventricular systolic function is normal. Atria The right atrium is mild to moderately dilated. The left atrium is moderately dilated. Interarterial septum not well visualized and not well dopplered. Cannot comment on ASD/PFO presence. Mitral Valve The mitral valve leaflets are sclerotic and show some degree of functional abnormality. There is no mitral valve stenosis. There is a trace amount of mitral regurgitation. Aortic Valve The aortic valve is grossly normal. There is no aortic valve stenosis. No aortic regurgitation is present. Tricuspid Valve The tricuspid valve is not well visualized, but is grossly normal. There is no tricuspid stenosis. There is a mild amount of tricuspid regurgitation. There is mild pulmonary hypertension by echo. Right ventricular systolic pressure is estimated to be elevated at 30-40mmHg. Pulmonic Valve The pulmonic valve is not well visualized. Great Vessels The aortic root is not well visualized but is probably normal size. The inferior vena cava appeared normal and decreased > 50% with respiration (RAP 5-10 mmHg). Effusions There is no pericardial effusion. Incidental Findings No definite cardiac source of CVA/TIA noted on this particular trans-thoracic study. Consider INDIRA if clinically indicated. : CARLOS DAVIS Shyamal
[2019-12-11 13:27] VITALS: BP 128/94
--- NOTE | 2019-12-11 16:05 | XCELERA REPORT ---
Study ID: [id number] [address] [id number] Transesophageal Echocardiogram Report Name: PRINCE MEREDITH Age: 34 yrs Gender: Male : 1985 Patient Status: Inpatient Patient Location: [address] [place] [address] Study Date: 12/11/2019 08:02 AM History: LU Reason For Study: cva Ordering Physician: ANSON GUERRA Performed By: BRUNA Interpretation Summary Left ventricular systolic function is normal. Ejection Fraction = >55%. The right ventricle is normal in size and function. No hemodynamically significant valvular aortic stenosis. Injection of contrast documented no interatrial shunt. No left atrial mass or thrombus visualized. There is no pericardial effusion. Procedure A complete two-dimensional transesophageal echocardiogram was performed (2D, spectral and color flow Doppler). Informed consent for Transesophageal Echocardiogram, and use of a contrast agent as needed, was obtained prior to the procedure. Saline contrast utilized. The patient was brought to the [facility] in a fasting state. An intravenous line was placed. A topical anesthetic agent was used for oropharangeal anesthesia. A bite block was inserted. IV conscious sedation was administered using Midazolam 2 mg IV + Fentanyl 50 mch IV. The patient's vital signs, including blood pressure, heart rate, pulse oximetry and cardiac rhythm were monitored thoughout the procedure. The transesophageal probe was passed without difficulty. The usual views were obtained; basal, mid-esophageal, transgastric and aortic views. The patient tolerated the procedure well without evidence of orophangeal or esophageal trauma. Subsequent to all the images being obtained the probe was removed with out trauma. Left Ventricle The left ventricle is normal in size. There is normal left ventricular wall thickness. Left ventricular systolic function is normal. Ejection Fraction = >55%. No regional wall motion abnormalities noted. Right Ventricle The right ventricle is normal in size and function. The right ventricular systolic function is normal. Atria The interatrial septum is intact with no evidence for an atrial septal defect. There is no Doppler evidence for an atrial septal defect. Injection of contrast documented no interatrial shunt. The left atrium is borderline dilated. No left atrial mass or thrombus visualized. The right atrium is borderline dilated. Mitral Valve The mitral valve is normal in structure and function. There is no mitral valve stenosis. There is trace mitral regurgitation. Aortic Valve The aortic valve is normal in structure and function. The aortic valve opens well. The aortic valve is trileaflet. No hemodynamically significant valvular aortic stenosis. No aortic regurgitation is present. Pulmonic Valve The pulmonic valve is not well visualized. Arteries The aortic root is normal size. Pericardium There is no pericardial effusion. : ANSON GUERRA Anil
--- NOTE | 2019-12-11 16:31 | PDOC DISCHARGE SUMMARY ---
Impression - Admit/DC Date/PCP Admission Date/Primary Care Provider: 12/09/19 15:01 Discharge Date: 12/11/19 - Discharge Diagnosis (1) Acute cerebrovascular accident (CVA) Is this a current diagnosis for this admission?: Yes (2) Acute systolic heart failure Is this a current diagnosis for this admission?: Yes (3) Acute kidney injury Is this a current diagnosis for this admission?: Yes (4) Hypertensive emergency Is this a current diagnosis for this admission?: Yes (5) Morbid obesity with BMI of 50.0-59.9, adult Is this a current diagnosis for this admission?: Yes (6) Obstructive sleep apnea Is this a current diagnosis for this admission?: Yes (7) Hyperlipidemia Is this a current diagnosis for this admission?: Yes - Additional Information Resuscitation Status: Full Code Discharge Diet: Cardiac Discharge Activity: Activity As Tolerated, Balance Activity w/Rest, Weigh Daily Referrals: [facility] [Provider Group] - 12/20/19 10:00 am ([address] [place] [address] ) Prescriptions: Carvedilol [Coreg 12.5 mg Tablet] 25 mg PO Q12 30 Days #120 tablet Aspirin [Ecotrin 81 mg EC Tablet] 81 mg PO DAILY 30 Days #3 tabec Atorvastatin Calcium [Lipitor 40 mg Tablet] 40 mg PO QHS 30 Days #30 tablet Amlodipine Besylate [Norvasc 10 mg Tablet] 10 mg PO DAILY 30 Days #30 tablet Home Medications: Amlodipine Besylate [Norvasc 10 mg Tablet] 10 mg PO DAILY 30 Days #30 tablet 12/11/19 Aspirin [Ecotrin 81 mg EC Tablet] 81 mg PO DAILY 30 Days #3 tabec 12/11/19 Atorvastatin Calcium [Lipitor 40 mg Tablet] 40 mg PO QHS 30 Days #30 tablet 12/11/19 Carvedilol [Coreg 12.5 mg Tablet] 25 mg PO Q12 30 Days #120 tablet 12/11/19 History of Present Illiness History of Present Illness: PRINCE MEREDITH is a 34 year old male with a body mass index of 57. He just established with a primary care provider at [facility]. At the initial visit on Monday of this week his blood pressure was 220/160. He was placed on lisinopril with hydrochlorothiazide 20/12.5. He felt fine today and was in his usual state of health when he developed right-sided facial numbness and slurred speech while driving. They immediately pulled over. He had chicken for dinner and it happened subsequently after this. The patient and his feel that it may have been the sodium in the meal. By the time he reached the emerge ncy department his symptoms were completely resolved. His blood pressure at the time of this encounter is 175/108. His pulse was 92. He felt comfortable. He had no complaints of headache, chest pain, palpitations, nausea or vomiting and was not diaphoretic. Other than the high blood pressure he has no other past medical history. His reports that he does snore and may very well have obstructive sleep apnea. He does have a history of tobacco use but stopped approximately 1 year ago. 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 His creatinine was 1.6 on admission. Blood work was drawn at his primary care appointment on Monday however he is not aware of the results. He denies any knowledge of previous kidney problems and there is no family history of kidney disease. The patient was referred to the hospitalist service for admission. Hospital Course Hospital Course: (1) Acute cerebrovascular accident (CVA) Stable. Denies any focal neurologic symptoms. Ambulatory. MRI showed acute nonhemorrhagic watershed infarcts. Bilateral MCA. Likely due to hypertensive emergency but cardioembolic phenomena cannot be ruled out. INDIRA negative for any cardioembolic source of stroke. Carotid Doppler negative for any hemodynamically significant stenosis. 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 Patient is stating that he did have a murmur when currently the child but was not follow-up. Given bilateral multiple infarct in the watershed areas and history of heart murmur raises suspicion of possible cardioembolic stroke. Continued high intensity statins, antiplatelets, optimize BP. Discharged on carvedilol, amlodipine, aspirin and statins. (2) Acute systolic heart failure Denies any history of CAD. Troponins 0.026, and 0.18 respectively. proBNP 1120 likely falsely decreased due to underlying obesity. Mildly elevated troponins likely due to hypertensive emergency. Denies any anginal symptoms. Started on cardiac diet, strict in and out, beta-blockers. Avoid AALIYAH/ARB and diuretics given acute kidney injury. Resume once renal function stabilizes or resolves. 2D echo ejection fraction 55%. Discharged on carvedilol 25 mg p.o. twice daily. Was to follow-up with PCP for possible resumption of AALIYAH/ARB if kidney function resolves or remains stable. (3) Acute kidney injury Improved. No baseline available. This most likely to hypertensive emergency. Likely chronic given patient has PTH of 88. Hold AALIYAH/ARB and diuretics. Optimize BP. Avoided nephrotoxic meds. Advised follow-up with PCP. Avoid nephrotoxic meds in the future. (4) Hypertensive emergency Optimized. Family history of hypertension. Takes hydrochlorothiazide and lisinopril at home. Hold hydrochlorothiazide and lisinopril given recent BRITT. Started on carvedilol and amlodipine. Can resume AALIYAH/ARB once kidney function stabilized or improved. Discharged on amlodipine and carvedilol. (5) Morbid obesity with BMI of 50.0-59.9, adult BMI 55.5. We will obtain TSH. Diet and lifestyle modification recommended. Outpatient nocturnal polysomnography may benefit him long-term in controlling his BP and obesity. (6) Obstructive sleep apnea Outpatient nocturnal polysomnography. (7) Hyperlipidemia High risk of cardiovascular complication given history of hypertension, hyperlipidemia and obesity. Started on atorvastatin 40 mg nightly. Lifestyle modification recommended. Outpatient PCP follow-up for LFT monitoring. Physical Exam Vital Signs: Temp Pulse Resp BP Pulse Ox 98.0 F 96 18 128/94 H 98 12/11/19 13:08 12/11/19 13:08 12/11/19 13:08 12/11/19 13:08 12/11/19 13:08 Intake & Output 12/10/19 12/11/19 12/12/19 06:59 06:59 06:59 Intake Total 1515 780 250 Output Total 600 Balance 915 780 250 Weight 180.4 kg 178.5 kg General appearance: PRESENT: morbidly obese Head exam: PRESENT: atraumatic, normocephalic Eye exam: PRESENT: conjunctiva pink, EOMI, PERRLA. ABSENT: scleral icterus Ear exam: PRESENT: normal external ear exam Mouth exam: PRESENT: moist, tongue midline Neck exam: ABSENT: carotid bruit, JVD, lymphadenopathy, thyromegaly Respiratory exam: PRESENT: clear to auscultation tank. ABSENT: rales, rhonchi, wheezes Cardiovascular exam: PRESENT: RRR. ABSENT: diastolic murmur, rubs, systolic murmur Pulses: PRESENT: normal dorsalis pedis pul Vascular exam: PRESENT: normal capillary refill GI/Abdominal exam: PRESENT: normal bowel sounds, soft. ABSENT: distended, guard ing, mass, organolmegaly, rebound, tenderness Rectal exam: PRESENT: deferred Extremities exam: PRESENT: full ROM. ABSENT: calf tenderness, clubbing, pedal edema Neurological exam: PRESENT: alert, awake, oriented to person, oriented to place, oriented to time, oriented to situation, CN II-XII grossly intact. ABSENT: motor sensory deficit Psychiatric exam: PRESENT: appropriate affect, normal mood. ABSENT: homicidal ideation, suicidal ideation Skin exam: PRESENT: dry, intact, warm. ABSENT: cyanosis, rash Results Laboratory Results: WBC 10.8 10^3/uL (4.0-10.5) H 12/09/19 05:28 RBC 4.54 10^6/uL (4.35-5.55) 12/09/19 05:28 Hgb 14.1 g/dL (13.5-17.0) 12/09/19 05:28 Hct 41.7 % (37.9-51.0) 12/09/19 05:28 MCV 92 fl (80-97) 12/09/19 05:28 MCH 31.0 pg (27.0-33.4) 12/09/19 05:28 MCHC 33.8 g/dL (32.0-36.0) 12/09/19 05:28 RDW 15.7 % (11.5-14.0) H 12/09/19 05:28 Plt Count 285 10^3/uL (150-450) 12/09/19 05:28 Lymph % (Auto) 23.7 % (13-45) 12/09/19 05:28 [place] % (Auto) 6.5 % (3-13) 12/09/19 05:28 Eos % (Auto) 5.1 % (0-6) 12/09/19 05:28 Baso % (Auto) 1.3 % (0-2) 12/09/19 05:28 Absolute Neuts (auto) 6.9 10^3/uL (1.7-8.2) 12/09/19 05:28 Absolute Lymphs (auto) 2.6 10^3/uL (0.5-4.7) 12/09/19 05:28 Absolute Monos (auto) 0.7 10^3/uL (0.1-1.4) 12/09/19 05:28 Absolute Eos (auto) 0.6 10^3/uL (0.0-0.6) 12/09/19 05:28 Absolute Basos (auto) 0.1 10^3/uL (0.0-0.2) 12/09/19 05:28 Seg Neutrophils % 63.4 % (42-78) 12/09/19 05:28 PT 15.5 SEC (11.4-15.4) H 12/07/19 22:08 INR 1.22 12/07/19 22:08 APTT 31.5 SEC (23.5-35.8) 12/07/19 22:08 Sodium 137.0 mmol/L (137-145) 12/11/19 09:33 Potassium 4.7 mmol/L (3.6-5.0) 12/11/19 09:33 Chloride 104 mmol/L (98-107) 12/11/19 09:33 Carbon Dioxide 25 mmol/L (22-30) 12/11/19 09:33 Anion Gap 8 (5-19) 12/11/19 09:33 BUN 17 mg/dL (7-20) 12/11/19 09:33 Creatinine 1.44 mg/dL (0.52-1.25) H 12/11/19 09:33 Est GFR ( Amer) > 60 (>60) 12/11/19 09:33 Est GFR (MDRD) Non-Af 56 (>60) L 12/11/19 09:33 Glucose 117 mg/dL (75-110) H 12/11/19 09:33 POC Glucose 129 mg/dL (70-110) H 12/07/19 22:17 Hemoglobin A1c % 5.2 % (4.7-6.0) 12/10/19 11:08 Calcium 9.3 mg/dL (8.4-10.2) 12/11/19 09:33 Total Bilirubin 2.0 mg/dL (0.2-1.3) H 12/07/19 22:08 Direct Bilirubin 0.5 mg/dL (0.0-0.4) H 12/07/19 22:08 Neonat Total Bilirubin Not Reportable 12/07/19 22:08 Neonat Direct Bilirubin Not Reportable 12/07/19 22:08 Neonat Indirect Bili Not Reportable 12/07/19 22:08 AST 31 U/L (17-59) 12/07/19 22:08 ALT 28 U/L (<50) 12/07/19 22:08 Alkaline Phosphatase 65 U/L (38-126) 12/07/19 22:08 Creatine Kinase 65 U/L (55-170) 12/07/19 22:08 CK-MB (CK-2) 1.38 ng/mL (<4.55) 12/07/19 22:08 Troponin I 0.018 ng/mL 12/10/19 11:08 NT-Pro-B Natriuret Pep 1120 pg/mL (<125) H 12/10/19 11:08 Total Protein 7.5 g/dL (6.3-8.2) 12/07/19 22:08 Albumin 4.1 g/dL (3.5-5.0) 12/07/19 22:08 Triglycerides 74 mg/dL (<150) 12/09/19 05:28 Cholesterol 145.38 mg/dL (0-200) 12/09/19 05:28 LDL Cholesterol Direct 113 mg/dL (<100) H 12/09/19 05:28 VLDL Cholesterol 15.0 mg/dL (10-31) 12/09/19 05:28 HDL Cholesterol 29 mg/dL (>40) L 12/09/19 05:28 TSH 2.96 uIU/mL (0.47-4.68) 12/10/19 11:08 PTH Intact 99.0 pg/mL (10.0-65.0) H 12/10/19 21:58 12/07/19 12/10/19 22:08 11:08 CK-MB (CK-2) 1.38 Troponin I 0.026 0.018 NT-Pro-B Natriuret Pep 1120 H Impressions: Chest X-Ray 12/07/19 21:57 IMPRESSION: No acute cardiopulmonary process copyright 2011 [employer]- All Rights Reserved Head CT 12/07/19 21:57 IMPRESSION: No acute intracranial abnormality is identified. Nurse practitioner Prudence Koch was called and notified of the findings at 9:40 PM central time. Head MRI 12/08/19 00:00 IMPRESSION: Acute, nonhemorrhagic small watershed infarcts. EVIDENCE OF ACUTE STROKE: YES. Bilateral MCA. Carotid Doppler Study 12/09/19 01:10 IMPRESSION: NO HEMODYNAMICALLY SIGNIFICANT STENOSIS. Stroke Is this a Stroke Patient?: Yes Acute Heart Failure - Is this a Heart Failure Patient?: No
== END 2019-12-11 13:47 | disposition home or self-care (01) | DRG 64 ==
LOC: ER 21:51 → INTOOBSV 12-08 02:10 → EH 12-08 02:10 → 3N 12-08 02:50 → OBSVTOIN 12-09 15:01
PROVIDERS: ADMIT Hospitalist; ATTEND Hospitalist
PROC: B24BZZ4 Ultrasonography of Heart with Aorta, Transesophageal (ICD-10-PCS; 2019-12-11)
PROC: 3E02340 Introduction of Influenza Vaccine into Muscle, Percutaneous Approach (ICD-10-PCS; principal; 2019-12-11 08:30)
DX: I63.513 Cerebral infarction due to unspecified occlusion or stenosis of bilateral middle cerebral arteries (principal); I50.21 Acute systolic (congestive) heart failure; N17.9 Acute kidney failure, unspecified; I16.1 Hypertensive emergency; Z68.43 Body mass index [BMI] 50.0-59.9, adult; I11.0 Hypertensive heart disease with heart failure; E66.01 Morbid (severe) obesity due to excess calories; G47.33 Obstructive sleep apnea (adult) (pediatric); E78.5 Hyperlipidemia, unspecified; Z23 Encounter for immunization
CPT/HCPCS: 36415; 70450; 70551; 71045; 80048; 80053; 80061; 82550; 82553; 82962; 83036; 83880; 83970; 84443; 84484; 85025; 85610; 85730; 90686; 93005; 93010; 93306; 93312; 93325; 93880; 96374; 96376; 99291; G0378; J1200; J1650; J1940; J2250; J2310; J3010; J3490

== ENCOUNTER → 2020-07-20 | Outpatient (CLI) | payer SELFPAY ==
[2020-07-20 12:01] VITALS: BP 149/80
--- NOTE | 2020-07-20 12:01 | ER RDC ASSESSMENT REPORT ---
Intake - In the Last 14 days Have you traveled outside [place]?: No Have you been in close contact with someone CONFIRMED: Yes Worked in Healthcare?: No - Symptoms Subjective Fever([place] feverish): No Chills: No Muscule Aches: No Runny Nose: Yes Sore Throat: No Cough (New or worsening chronic cough): Yes Shortness of breath: No Nausea or Vomiting: No Headache: No Abdominal Pain: No Diarrhea(3 or more loose stools in last 24 hours): No - Do you have any of the following Chronic lung disease: Asthma or emphysema or COPD: No Cystic Fibrosis: No Diabetes: No High Blood Pressure: Yes Cardiovascular Disease: Yes Chronic Kidney Disease: No Chronic Liver Disease: No Chronic blood disorder like Sickle Cell Disease: No Weak immune system due to disease or medication: No Neurologic condition that limits movement: No Developmental delay - Moderate to Severe: No Recent (within past 2 weeks) or current : No Morbid Obesity (>100 pounds over ideal weight): Yes Obesity Comment: Height 5 feet 11 inches weight 395 pounds - Objective Temperature: 98.0 F Pulse Rate: 75 Respiratory Rate: 18 Blood Pressure: 149/80 O2 Sat by Pulse Oximetry: 100 Objective: Given above, testing performed: If Testing Performed: Test Specimen Type Sent to General - General Information source: Patient Notes: Patient here at [facility] for cover testing patient's was exposed to a customers who tested positive. started having symptoms last week as well as the patient patient describes symptoms as a runny nose and cough. Patient PCP T with [facility]. - Related Data Allergies/Adverse Reactions: No Known Allergies Allergy (Unverified 12/08/19 09:26) Past Medical History - General Information source: Patient - Smokes about 4 cigarettes per day - Social History Smoking Status: Current Every Day Smoker Smoking Education Provided: Yes - Quit Smoking Family History: Reviewed & Not Pertinent - Past Medical History Cardiac Medical History: Reports: Hx Hypertension Pulmonary Medical History: Denies: Hx Asthma, Hx COPD, Hx Respiratory Failure Neurological Medical History: Denies: Hx Seizures Skin Medical History: Denies Hx Eczema, Denies Hx Psoriasis Psychiatric Medical History: Denies: Hx Depression Physical Exam - General General appearance: Appears well, Alert In distress: None Notes: PHYSICAL EXAMINATION: GENERAL: Well-appearing and in no acute distress. HEAD: Atraumatic, normocephalic. EYES: sclera anicteric, conjunctiva are normal. ENT: nares patent. Moist mucous membranes. NECK: Normal range of motion, supple without lymphadenopathy LUNGS: CTAB and equal. No wheezes rales or rhonchi. Respirations even and unlabored lung sounds clear. HEART: Regular rate and rhythm without murmurs ABDOMEN: Soft, nontender, normal bowel sounds, no guarding. EXTREMITIES: Normal range of motion, no pitting edema. No cyanosis. NEUROLOGICAL: Cranial nerves grossly intact. Normal speech. Normal gait. PSYCH: Normal mood, normal affect. SKIN: Warm, Dry, normal turgor, no rashes or lesions noted Diagnostic Results Laboratory Results: Patient informed of positive rapid strep results prescription of Pen-Vee K 500 mg 1 p.o. twice daily for 10 days total of 20 tablets called into patient's pharmacy of [facility] pharmacy in [place]. Pending strep culture pending covid testing results. Patient provided instructions regarding code to include: As a person under investigation for Covid 19, the [place] department of Health and Human Services, division of public health advises you to adhere to the following guidance until your test results are reported to you. If your test result is positive, you will receive additional information from your provider and your local health department at that time. Remain at home until you are cleared by the health provider or public health authorities. Keep a log of visitors to your home, notify any visitors to your home of your isolation status. If you plan to move to a new address or leave the [facility], notify the local [facility] department in your County. Call your doctor or seek care if you have an urgent medical need. Before seeking medical care, call ahead to get instructions from the provider before arriving at the medical office clinic or hospital. Notify them that you are being tested for the virus that causes Covid 19 so that arrangements can be made, as necessary, to prevent transmission to others in the healthcare setting. Next, notify the local health department in your county. If a medical emergency arises and you need to call 911, inform the first responders that you are being tested for the virus that causes Covid 19. Next, notify the local health department in your county. Patient Education/Counseling Counseling/Education: Patient presents with upper respiratory symptoms worrisome for possible Covid 19. Patient does not have emergency worring symptoms such as difficulty breathing, shortness of breath, chest pain, pressure, confusion or cyanosis. Patient appears suitable for discharge. Patient instructed to follow-up with PCP at [facility] today. To ED for persistent or worsening symptoms. Patient's vital signs are stable and patient is nontoxic in appearance. Good return precautions have been discussed with patient, patient verbalized understanding and is agreeable with discharge plan of care at this time. RDC Discharge - Discharge Clinical Impression: Strep pharyngitis Condition: Stable Disposition: Home; Selfcare
== END ==
LOC: RDC 11:11
PROVIDERS: ATTEND Nurse Practitioner Family
DX: Z20.828 Contact with and (suspected) exposure to other viral communicable diseases (principal); R05 Cough; R09.89 Other specified symptoms and signs involving the circulatory and respiratory systems; I10 Essential (primary) hypertension; E66.01 Morbid (severe) obesity due to excess calories; F17.210 Nicotine dependence, cigarettes, uncomplicated
CPT/HCPCS: 87880; 87635; C9803; 99201; 99211